=== PATIENT | male | born 1975 | race Caucasian/White ===

== ENCOUNTER 2023-06-06 04:36 | Emergency (ER) | payer OTHER ==
--- NOTE | 2023-06-06 04:41 | ED Physician Documentation ---
PD HPI CHEST PAIN - Stated complaint Stated Complaint: CHEST PX - History obtained from History obtained from: Patient - Additional information Additional information: HPI from patient. 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 Pain does not radiate. He denies feeling short of breath although he does note there is mild pleuritic component. The pain is also slightly exacerbated when he lies supine. He has not noticed any leg swelling. Denies cough. He has no previous cardiac history except for suspected pericarditis in November 2020. Review of Systems Constitutional: reports: Reviewed and negative Cardiac: reports: Chest pain / pressure. denies: Palpitations, Pedal edema, Calf pain Respiratory: reports: Reviewed and negative GI: reports: Reviewed and negative Musculoskeletal: reports: Reviewed and negative Neurologic: reports: Reviewed and negative PD PAST MEDICAL HISTORY - Past Medical History Past Medical History: Yes Cardiovascular: Hypertension - Present Medications Home Medications: Ambulatory Orders Medication Instructions Recorded Confirmed Sertraline [Zoloft] 25 mg PO DAILY 06/06/23 06/06/23 carvediloL [Coreg] 3.125 mg PO BID 06/06/23 06/06/23 - Allergies Allergies/Adverse Reactions: Allergies Allergy/AdvReac Type Severity Reaction Status Date / Time No Known Drug Allergies Allergy Verified 06/06/23 04:55 PD ED PE NORMAL - Vitals Vital signs reviewed: Yes - General General: Alert and oriented X 3, No acute distress, Well developed/nourished - Neck Neck: Supple, no meningeal sign - Cardiac Cardiac: RRR, No murmur, No gallop, No rub - Respiratory Respiratory: No respiratory distress, Clear bilaterally - Abdomen Abdomen: Soft, Non tender - Derm Derm: Normal color, Warm and dry - Extremities Extremities: No edema Results - Vitals Vitals: Vital Signs - 24 hr 06/06/23 06/06/23 06/06/23 04:51 04:53 05:00 Temperature 36.6 C Heart Rate 67 68 68 Respiratory 12 16 18 Rate Blood Pressure 138/94 H 130/82 H 139/96 H O2 Saturation 97 100 95 06/06/23 06/06/23 06/06/23 05:30 06:00 06:30 Temperature Heart Rate 64 65 66 Respiratory 20 20 15 Rate Blood Pressure 131/90 H 139/97 H 126/86 H O2 Saturation 96 96 98 06/06/23 07:59 Temperature 36.2 C L Heart Rate 81 Respiratory 16 Rate Blood Pressure 123/90 H O2 Saturation 100 Oxygen O2 Source Room air - EKG (time done) No standard instances EKG releavant findings:: EKG personally interpreted by author of this note. Relevant findings are: Rate: Rate (enter#) Rhythm: NSR [place]: LAD Intervals: Normal TN QRS: LVH Ischemia: Normal ST segments - Labs Labs: Laboratory Tests 06/06/23 06/06/23 05:05 05:05 WBC 8.3 RBC 4.46 L Hgb 13.5 L Hct 40.2 L MCV 90.1 MCH 30.3 MCHC 33.6 RDW 13.0 Plt Count 162 MPV 9.6 Neut # (Auto) 5.6 Lymph # (Auto) 1.7 [place] # (Auto) 0.8 Eos # (Auto) 0.1 Baso # (Auto) 0.1 Absolute Nucleated RBC 0.00 Nucleated RBC % 0.0 Sodium 140 Potassium 3.9 Chloride 108 Carbon Dioxide 28 Anion Gap 4.0 L BUN 28 H Creatinine 1.1 Estimated GFR (MDRD) 72 L Glucose 89 Calcium 9.6 Total Bilirubin 0.3 AST 19 ALT 33 Alkaline Phosphatase 58 Troponin I High Sens 2.3 Total Protein 7.4 Albumin 4.3 Globulin 3.1 Albumin/Globulin Ratio 1.4 Lipase 22 - Rads (name of study) chest xray Relevant Findings:: Prelim report reviewed, See rad report PD Medical Decision Making - ED course Complexity details: reviewed results, re-evaluated patient, considered differential, d/w patient ED course: There are no concerning nor diagnostic findings on the blood tests, EKG, chest x-ray. He is given 4 mg morphine IV early in his stay but reports no improvement with this intervention. He is then given 1 mg of Dilaudid intravenously. He reports mild improvement with this. I discussed the test results with him. On reevaluation, he is now saying there is a strong and distinct pleuritic component to the pain. At this point, my shift is over and thus care of the patient is turned over to the oncoming ED physician (Dr. Gamez). I have put in an order for a CTA of the chest (PE study). I explained to the patient that he will very likely be discharged if the CT study is unremarkable.
[2023-06-06 05:19] LABS: BASOPHILS # (AUTO) 0.1 10^3/uL (0.0-0.1); BASOPHILS % (AUTO) 0.6 %; EOSINOPHILS # (AUTO) 0.1 10^3/uL (0.0-0.7); EOSINOPHILS % (AUTO) 1.1 %; HCT - HEMATOCRIT 40.2 % (42.0-52.0); HGB - HEMOGLOBIN 13.5 g/dL (14.0-18.0); LYMPHOCYTES # (AUTO) 1.7 10^3/uL (1.5-3.5); LYMPHOCYTES % (AUTO) 21.1 %; MEAN CORPUSCULAR HEMOGLOBIN 30.3 pg (27.0-31.0); MEAN CORPUSCULAR HGB CONC 33.6 g/dL (32.0-36.0); MEAN CORPUSCULAR VOLUME 90.1 fL (80.0-94.0); MEAN PLATELET VOLUME 9.6 fL (7.4-11.4); MONOCYTES # (AUTO) 0.8 10^3/uL (0.0-1.0); MONOCYTES % (AUTO) 9.1 %; NEUTROPHILS # (AUTO) 5.6 10^3/uL (1.5-6.6); NEUTROPHILS % (AUTO) 67.9 %; PLT - PLATELET COUNT 162 10^3/uL (130-450); RED BLOOD COUNT 4.46 10^6/uL (4.70-6.10); WHITE BLOOD COUNT 8.3 x10^3/uL (4.8-10.8)
[2023-06-06] MEDS ORDERED: MORPHINE 2 MG/ML CARPUJECT IVP STA (05:32)
[2023-06-06 05:36] LABS: ALBUMIN 4.3 g/dL (3.2-5.5); ALBUMIN/GLOBULIN RATIO 1.4 (1.0-2.2); BILIRUBIN,TOTAL 0.3 mg/dL (0.2-1.0); CALCIUM 9.6 mg/dL (8.5-10.3); CREATININE 1.1 mg/dL (0.6-1.3); POTASSIUM 3.9 mmol/L (3.5-4.5); TOTAL PROTEIN 7.4 g/dL (6.4-8.9)
[2023-06-06 06:01] LABS: TROPONIN I HIGH SENSITIVITY 2.3 ng/L (2.3-19.7)
[2023-06-06] MEDS ORDERED: HYDROmorphone 1 MG/ML CARPUJECT IVP STA (06:11)
[2023-06-06 08:00] VITALS: O2SAT 100
[2023-06-06 09:23] VITALS: BP 130/98
[2023-06-06] MEDS ORDERED: MAG HYDROX/AL HYDROX/SIMETH 30 ML UDC PO STA (09:28)
[2023-06-06] MEDS ORDERED: KETOROLAC 15 MG/ML VIAL IVP STA (09:29)
[2023-06-06] MEDS ORDERED: LIDOCAINE VISCOUS 2% 15 ML UDC MM STA (09:30)
--- NOTE | 2023-06-06 09:32 | CT Report ---
PROCEDURE: ANGIO CHEST W/WO INDICATIONS: pleuritic chest pain CONTRAST: 100ml omni 300 TECHNIQUE: After the administration of intravenous contrast, 2 mm axial images were acquired from the pulmonary apices to the posterior costophrenic angles during the arterial phase. In addition, 1 mm lung kernel and 5 mm soft tissue kernel reconstructions were performed. 3-dimensional coronal oblique maximum int ensity projection (MIP) reformats, 8 mm axial MIP, and 5 mm coronal and sagittal MPR reformats were t hen performed through the thorax. For radiation dose reduction, the following was used: automated exp osure control, adjustment of mA and/or kV according to patient size. COMPARISON: None FINDINGS: Image quality: Excellent. Large vessels: No filling defects within the opacified pulmonary arteries, accounting for motion and contrast timing. No evidence of acute aortic syndrome or aortic aneurysm. Lungs and pleura: Mild dependent bilateral lower lobe airspace opacity, consistent with atelectasis. No pleural effusions. No pneumothorax. No suspicious pulmonary nodules which require follow up. Mediastinum: Heart size is normal. No pericardial effusion. No large vessel abnormality. No mediastin al adenopathy by size criteria. Chest wall and lower neck: Thyroid is unremarkable. No axillary or supraclavicular adenopathy by size . Bones: No aggressive osseous abnormality. Upper Abdomen: Unremarkable. IMPRESSION: No acute process. No pulmonary embolus. Reviewed by: Lucia Rizzo MD on 06/06/2023 9:31 AM PDT Approved by: Lucia Rizzo MD on 06/06/2023 9:31 AM PDT Station ID: [id number]
--- NOTE | 2023-06-06 09:59 | ED Physician Documentation ---
ED Addendum - Addendum Addendum: 06/06/23 09:56 The patient was still complaining of pain after change of shift. We tried a combination of GI cocktail orally which he thinks may have provided some mild relief. Toradol was also given in over half hour so he was stating more moderate improvement. Still having pain with breathing. He did have his CT angio of the chest. The report came back showing no blood clots, normal aorta, mild atelectasis at the base of the lungs but no other pulmonary process and no other acute findings. Heart size was normal and no pericardial effusion. No lung effusion. At this point it does seem we have excluded the more serious and significant causes for the chest pain. Consideration would be pleurisy given a good component of it worsening with breathing and position. No rub per se to suggest pericarditis and the EKG had been normal and no effusion. It be common treatment with anti-inflammatories anyway. There may be some element of esophageal pain but not clearly so. I did suggest to them that they use some antacid such as Maalox or Mylanta several times daily in combination with the NSAIDs. Also Pepcid or famotidine type medicine daily for the next week or 2. However primary focus would be anti-inflammatories. I can prescribe meloxicam to be longer half-life and somewhat stomach protecting. Add hydrocodone if needed for pain if Tylenol alone is not sufficient. They requested their prescription to [facility] pharmacy. Disposition: The patient discharged home in stable condition Diagnoses pleuritic chest pain 2. Pleurisy
--- NOTE | 2023-06-06 10:28 | XRAY Report ---
PROCEDURE: Chest 2 View X-Ray INDICATIONS: chest pain TECHNIQUE: 2 views of the chest were acquired. COMPARISON: None. FINDINGS: Surgical changes and devices: None. Lungs and pleura: No pleural effusions or pneumothorax. Lungs are clear. Mediastinum: Mediastinal contours appear normal. Heart size is normal. Bones and chest wall: No suspicious bony lesions. Overlying soft tissues appear unremarkable. IMPRESSION: No acute process. Reviewed by: Lucia Rizzo MD on 06/06/2023 10:26 AM PDT Approved by: Lucia Rizzo MD on 06/06/2023 10:26 AM PDT Station ID: [id number]
[2023-06-06] MEDS ORDERED: iohexoL-300 100 ML VIAL IVP ONE (16:43)
== END 2023-06-06 10:12 | disposition home or self-care (01) ==
LOC: ED 04:36
DX: R09.1 Pleurisy (principal); I10 Essential (primary) hypertension
CPT/HCPCS: 36415; 71046; 71275; 80053; 83690; 84484; 85025; 93005; 96374; 96375; 99284; 99285; A9270; J1170; Q9967